=== PATIENT | female | born 1945 | race Caucasian/White ===

== ENCOUNTER 2022-09-16 10:18 | Emergency (ER) | payer BC ==
[2022-09-16] MEDS ORDERED: Sodium Chloride 0.9% 10 ML Syringe FLUSH PRN (10:39)
[2022-09-16] MEDS ORDERED: Albuterol/Ipratropium 3.0-0.5 MG/3 ML Neb Soln NEB ONE (10:41)
[2022-09-16] MEDS ORDERED: methylPREDNISolone Sodium Succinate 125 MG/2 ML SDV IVPUSH ONE (10:41)
[2022-09-16] MEDS ORDERED: Codeine/Promethazine 10-6.25 MG/5 ML Syrup 5 ML UD Cup PO ONE (10:43)
[2022-09-16 11:05] LABS: HEMATOCRIT 37.7 % (37.0-47.0); HEMOGLOBIN 12.6 g/dL (12.0-16.0); MEAN CORPUSCULAR HEMOGLOBIN 28.8 pg (27.0-34.0); MEAN CORPUSCULAR HGB CONC 33.4 g/dL (33.0-35.0); MEAN CORPUSCULAR VOLUME 86.1 fL (80-100); PLATELET COUNT,PLT 178 10^3/uL (150-450); RED BLOOD CELL COUNT 4.38 10^6/uL (4.2-5.4); WHITE BLOOD CELL COUNT,WBC 4.8 10^3/uL (5.0-10.0)
[2022-09-16 11:19] LABS: BASOPHILS PERCENT AUTO 0.6 % (0.0-1.0); EOSINOPHILS PERCENT AUTO 1.9 % (1.0-3.0); LYMPHOCYTES PERCENT AUTO 26.8 % (20.5-50.1); MONOCYTES PERCENT AUTO 9.3 % (2-8); NEUTROPHILS PERCENT AUTO 61.4 % (42.2-75.2)
[2022-09-16 11:25] LABS: LACTIC ACID 1.4 mmol/L (0.4-2.0)
[2022-09-16 11:35] LABS: ANION GAP 9.3 mEq/L (7-13); BILIRUBIN TOTAL 0.3 mg/dL (0.2-1.0); BUN/CREATININE RATIO 15.1 (No establ ref range); CALCIUM 8.4 mg/dL (8.5-10.1); CREATININE 0.93 mg/dL (0.55-1.02); EST CRCL DRUG DOSING (CG) 46.67 mL/min; POTASSIUM,K 4.3 mmol/L (3.5-5.1)
[2022-09-16] MEDS ORDERED: Iopamidol 755 Mg/ML 100 ML Bottle IVPUSH ONE (11:40)
[2022-09-16] MEDS ORDERED: Sodium Chloride 0.9% 1,000 ML IV ONE (11:40)
[2022-09-16 11:45] LABS: BAND PERCENT MAN 6 %; LYMPHOCYTES PERCENT MAN 23 % (20-50); MONOCYTES PERCENT MAN 7 % (2-8); SEG NEUTROPHILS PERCENT MAN 64 % (42-75)
[2022-09-16] MEDS ORDERED: Albuterol 6.7 GM Inhaler INH ONE (12:54)
[2022-09-16 13:42] VITALS: BP 126/56; PULSE 66
== END 2022-09-16 13:34 | disposition home or self-care (01) ==
LOC: DL.ED 10:18
DX: J45.41 Moderate persistent asthma with (acute) exacerbation (principal); R91.1 Solitary pulmonary nodule; I10 Essential (primary) hypertension; E03.9 Hypothyroidism, unspecified; Z88.5 Allergy status to narcotic agent; Z88.0 Allergy status to penicillin; Z79.82 Long term (current) use of aspirin; Z79.899 Other long term (current) drug therapy; Z20.822 Contact with and (suspected) exposure to COVID-19
CPT/HCPCS: 36415; 71046; 71275; 80053; 83605; 83880; 85025; 85379; 87804; 94640; 96374; 99284; 99285-25; A9270-GY; J2930; J3490; J7030; J7620-GY; Q9967; U0002